=== PATIENT | female | born 2000 | race Two or more races ===

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

== ENCOUNTER 2020-05-09 20:20 | Emergency (ER) | payer OTHER ==
[~2020-05-09] VITALS: Ht 152.4 cm; Wt 52.6 kg
--- NOTE | 2020-05-09 20:25 | NUR ---
PT TO ER BED 9 C/O OF EPIGASTRIC PAIN WITH NV X10 TIMES THAT STARTED AT 1900 AFTER EATING PIZZA AND WINGS. YELLOW AND WATERY EMESIS NOTED. PT STATES " THE MIDDLE OF MY STOMACH HURTS AND I CANT THROW UP ANY MORE". BREATHING EVENLY AND UNLABORED. PT CONNECTED TO MONITOR AND POX. WILL CONTINUE TO MONITOR.
--- NOTE | 2020-05-09 20:30 | NUR ---
Hardeep auguste in ED - 05/09/20 at 2128 by KEVIN COLLECTED BLOOD AND SENT TO LAB. PT UNABLE TO URINATE, DR GODWIN MADE AWARE
--- NOTE | 2020-05-09 20:30 | NUR ---
BLOOD COLLECTED AND SENT TO LAB. PT UNABLE TO URINATE FABIO AYALA MADE AWARE
[2020-05-09] MEDS ORDERED: ONDANSETRON HCL/PF 4 MG/2 ML VIAL ONE (20:37)
[2020-05-09 20:56] LABS: BASOPHILS # (AUTO) 0.1 /CMM (0.0-0.2); BASOPHILS % (AUTO) 0.4 % (0.0-2.0); EOSINOPHILS % (AUTO) 0.6 % (0.0-6.0); HEMATOCRIT 41 % (33-45); HEMOGLOBIN 13.5 g/dL (11.5-14.8); LYMPHOCYTES % (AUTO) 12.7 % (20.0-44.0); MEAN CORPUSCULAR HGB CONC 33 g/dl (31.0-36.0); MEAN CORPUSCULAR VOLUME 89 fL (82-100); MONOCYTES # (AUTO) 0.9 /CMM (0.1-1.30); MONOCYTES % (AUTO) 3.8 % (2.0-12.0); NEUTROPHILS # (AUTO) 19.5 /CMM (1.8-8.9); NEUTROPHILS % (AUTO) 82.5 % (43.0-81.0); PLATELET COUNT (AUTO) 366 /CMM (150-450); RED BLOOD CELL COUNT(AUTO) 4.66 MIL/uL (4.0-5.2); WHITE BLOOD COUNT (AUTO) 23.6 K/uL (4.3-11.0)
[2020-05-09] MEDS: IV NS 0.9% 1,000 ML BAG IV ONE ×2 (21:01→22:30)
[2020-05-09] MEDS: ONDANSETRON HCL/PF 4 MG/2 ML VIAL IVP ONE (21:01)
[2020-05-09] MEDS ORDERED: MORPHINE SULFATE INJ 4 MG/ML DISP.SYRIN ONE (21:03)
[2020-05-09] MEDS: MORPHINE SULFATE INJ 4 MG/ML DISP.SYRIN IV ONE (21:24)
[2020-05-09 22:02] LABS: ALBUMIN 4.4 g/dL (3.4-5.0); BILIRUBIN,DIRECT 0.1 mg/dL (0.0-0.2); BILIRUBIN,TOTAL 0.2 mg/dL (0.2-1.0); CALCIUM, SERUM 9.3 mg/dL (8.5-10.1); CREATININE 0.9 mg/dL (0.6-1.3); POTASSIUM 3.3 mmol/L (3.5-5.1); TOTAL PROTEIN, SERUM 8.2 g/dL (6.4-8.2)
[2020-05-09] MEDS ORDERED: POTASSIUM CHLORIDE 20 MEQ TAB.PRT.SR PO ONE (22:25)
[2020-05-09] MEDS: POTASSIUM CHLORIDE 20 MEQ TAB.PRT.SR PO ONE (22:30)
[2020-05-09] MEDS ORDERED: PROCHLORPERAZINE EDISYLATE 10 MG/2 ML VIAL ONE (22:36)
[2020-05-09 22:38] LABS: BILIRUBIN,URINE NEGATIVE (NEGATIVE); BLOOD, URINE LARGE Ery/uL (NEGATIVE); COLOR,URINE YELLOW (YELLOW); LEUKOCYTE ESTERASE ,URINE NEGATIVE (NEGATIVE); NITRITE, URINE NEGATIVE (NEGATIVE); PH,URINE 5.5 (5.0-8.0); PROTEIN,URINE TRACE mg/dl (NEGATIVE); UGLUCOSE NEGATIVE (NEGATIVE); UROBILINOGEN,URINE 0.2 EU/dL (0.2)
[2020-05-09] MEDS: PROCHLORPERAZINE EDISYLATE 10 MG/2 ML VIAL IVP ONE (22:46)
[2020-05-09] MEDS ORDERED: KETOROLAC TROMETHAMINE 15 MG/ML VIAL ONE (22:49)
[2020-05-09] MEDS ORDERED: LORAZEPAM 0.5 MG TABLET ONE (22:49)
[2020-05-09 22:51] LABS: BACTERIA,URINE None seen /HPF (None Seen); SQUAMOUS EPITHELIAL CELL,UR Many /HPF (None Seen); WBC,URINE 0-2 /HPF (0-3)
--- NOTE | 2020-05-09 23:00 | NUR ---
URINE COLLECTED AND SENT TO LAB
[2020-05-09] MEDS: KETOROLAC TROMETHAMINE INJ 30 MG/ML VIAL IV ONE (23:29)
[2020-05-09] MEDS: LORAZEPAM 0.5 MG TABLET PO ONE (23:47)
--- NOTE | 2020-05-09 23:52 | NUR ---
Patient discharged to home in stable condition. Written and verbal after care instructions given. Patient verbalizes understanding of instruction. IV removed. Catheter intact and site benign. Pressure and 4x4 applied to site. No bleeding noted.PT ambulatory with a steady gait. Pt dc to mother.
[2020-05-09 23:53] VITALS: BP 124/71
== END 2020-05-09 23:54 | disposition home or self-care (01) ==
LOC: ER 20:23
DX: A05.9 Bacterial foodborne intoxication, unspecified (principal); R11.2 Nausea with vomiting, unspecified; R19.7 Diarrhea, unspecified; E87.6 Hypokalemia; D72.829 Elevated white blood cell count, unspecified; R82.4 Acetonuria; E86.0 Dehydration
CPT/HCPCS: 36415; 80048; 80076; 81001; 83690; 84703; 85025; 96361; 96374; 96375; 99284; J0780; J1885; J2270; J2405; J7030

== ENCOUNTER 2020-09-10 21:59 | Emergency (ER) | payer OTHER ==
[~2020-09-10] VITALS: Ht 152.4 cm; Wt 53.1 kg
[2020-09-10] MEDS ORDERED: IV NS 0.9% 1,000 ML BAG IV ONE (22:30)
[2020-09-10] MEDS ORDERED: ONDANSETRON HCL/PF 4 MG/2 ML VIAL IVP ONE (22:30)
--- NOTE | 2020-09-10 22:30 | NUR ---
TO ER BED 17 AMBULATORY C/O ABDOMINAL PAIN WITH N/V/D X1 WEEK. PT AAOX4 NO ACUTE DISTRESS NOTED, RESP EVEN AND UNLABORED. URINE SAMPLE COLLECTED. PENDING ER MD GONZALEZ.
[2020-09-10] MEDS ORDERED: ONDANSETRON HCL/PF 4 MG/2 ML VIAL ONE (22:32)
--- NOTE | 2020-09-10 22:35 | NUR ---
PT MEDICATED ORDERED.
--- NOTE | 2020-09-10 22:40 | NUR ---
COVID SWAB COLLECTED AND SENT TO LAB.
[2020-09-10 22:41] LABS: BASOPHILS % (AUTO) 0.2 % (0.0-2.0); EOSINOPHILS % (AUTO) 4.6 % (0.0-6.0); HEMATOCRIT 42 % (33-45); LYMPHOCYTES % (AUTO) 11.2 % (20.0-44.0); MEAN CORPUSCULAR HGB CONC 33 g/dl (31.0-36.0); MEAN CORPUSCULAR VOLUME 88 fL (82-100); MONOCYTES # (AUTO) 1.6 /CMM (0.1-1.30); MONOCYTES % (AUTO) 8.9 % (2.0-12.0); NEUTROPHILS # (AUTO) 13.4 /CMM (1.8-8.9); NEUTROPHILS % (AUTO) 75.1 % (43.0-81.0); PLATELET COUNT (AUTO) 438 /CMM (150-450); RED BLOOD CELL COUNT(AUTO) 4.79 MIL/uL (4.0-5.2); WHITE BLOOD COUNT (AUTO) 17.9 K/uL (4.3-11.0)
[2020-09-10 22:43] LABS: BILIRUBIN,URINE NEGATIVE (NEGATIVE); COLOR,URINE YELLOW (YELLOW); LEUKOCYTE ESTERASE ,URINE NEGATIVE (NEGATIVE); NITRITE, URINE NEGATIVE (NEGATIVE); PROTEIN,URINE 30 mg/dl (NEGATIVE); UGLUCOSE NEGATIVE (NEGATIVE); UROBILINOGEN,URINE 0.2 EU/dL (0.2)
[2020-09-10 22:59] LABS: ALBUMIN 4.4 g/dL (3.4-5.0); BILIRUBIN,DIRECT 0.1 mg/dL (0.0-0.2); BILIRUBIN,TOTAL 0.4 mg/dL (0.2-1.0); CALCIUM, SERUM 9.7 mg/dL (8.5-10.1); CREATININE 0.8 mg/dL (0.6-1.3); POTASSIUM 3.5 mmol/L (3.5-5.1); TOTAL PROTEIN, SERUM 8.5 g/dL (6.4-8.2)
[2020-09-10 23:41] LABS: BACTERIA,URINE Many /HPF (None Seen); RBC,URINE 0-2 /HPF (0-2); SQUAMOUS EPITHELIAL CELL,UR Many /HPF (None Seen); WBC,URINE 0-2 /HPF (0-3)
[2020-09-10 23:42] LABS: MUCUS,URINE Few /LPF (None Seen)
[2020-09-11] MEDS ORDERED: MORPHINE SULFATE INJ 4 MG/ML DISP.SYRIN ONE (00:11)
[2020-09-11] MEDS ORDERED: ONDANSETRON HCL/PF 4 MG/2 ML VIAL ONE (00:14)
[2020-09-11] MEDS ORDERED: MORPHINE SULFATE INJ 10 MG/ML DISP.SYRIN IV ONE (00:30)
[2020-09-11] MEDS ORDERED: AMOX-430 PO (01:05)
[2020-09-11] MEDS ORDERED: TRAM50TA2 PO (01:05)
--- NOTE | 2020-09-11 01:20 | NUR ---
Pt is medically stable for D/C. IV removed. Catheter intact and site benign. Pressure and 4x4 applied to site. No bleeding noted.Patient discharged to home in stable condition. Rx and Written and verbal after care instructions given. Patient verbalizes understanding of instruction.
[2020-09-11 01:42] VITALS: BP 115/71
== END 2020-09-11 01:43 | disposition home or self-care (01) ==
LOC: ER 22:05
DX: R11.0 Nausea (principal); I88.0 Nonspecific mesenteric lymphadenitis; Z20.822 Contact with and (suspected) exposure to COVID-19
CPT/HCPCS: 36415; 74176; 80048; 80076; 81001; 83690; 84703; 85025; 87086; 87426; 96361; 96374; 96375; 99284; C9803; J2270; J2405; J7030